=== PATIENT | male | born 1975 | race Hispanic/Latino ===

== ENCOUNTER 2023-07-01 07:36 | Emergency (ER) | payer OTHER ==
[2023-07-01 08:00] VITALS: BP 142/91; PULSE 112; RESP 14; O2SAT 99
[2023-07-01 08:25] LABS: BILIRUBIN,TOTAL 0.7 mg/dL (0.2-1.0); CREATININE 1.1 mg/dL (0.5-1.3); POTASSIUM 3.2 mmol/L (3.5-5.1)
[2023-07-01 08:39] LABS: BASOPHILS # (AUTO) 0.08 K/uL (0.00-0.20); BASOPHILS % (AUTO) 0.8 % (0.0-5.0); EOSINOPHILS # (AUTO) 0.11 K/uL (0.00-0.70); IMMATURE GRANULOCYTE ABSOLUTE 0.05 K/uL (0-1); LYMPHOCYTES # (AUTO) 2.1 K/uL (1.0-4.8); LYMPHOCYTES % (AUTO) 20.3 % (21.0-51.0); MEAN CORPUSCULAR HEMOGLOBIN 28.8 pg (27.0-33.0); MEAN CORPUSCULAR HGB CONC 34.1 g/dL (32.0-36.0); MEAN CORPUSCULAR VOLUME 84.2 fL (79-99); MONOCYTES # (AUTO) 0.7 K/uL (0.1-1.0); MONOCYTES % (AUTO) 6.5 % (3.0-13.0); NEUTROPHILS # (AUTO) 7.5 K/uL (1.8-7.7); NEUTROPHILS % (AUTO) 70.9 % (40.0-77.0); PLATELET COUNT (AUTO) 277 K/uL (130-400); RED BLOOD CELL COUNT(AUTO) 5.46 MIL/uL (4.50-6.20); RED CELL DISTRIBUTION WIDTH 13.2 % (11.0-15.5); WHITE BLOOD COUNT (AUTO) 10.5 K/uL (4.8-10.8)
[2023-07-01 09:09] LABS: ADD UA MICROSCOPIC YES; APPEARANCE,URINE CLEAR (CLEAR); BILIRUBIN,URINE NEGATIVE (NEGATIVE); COLOR,URINE YELLOW (YELLOW); GLUCOSE, URINE (UA) >=1000 mg/dL (NEGATIVE); KETONES,URINE NEGATIVE (NEGATIVE); LEUKOCYTE ESTERASE ,URINE NEGATIVE Leu/uL (NEGATIVE); NITRATE,URINE NEGATIVE (NEGATIVE); OCCULT BLOOD,URINE NEGATIVE (NEGATIVE); PH,URINE 5.5 (5.0-8.0); PROTEIN,URINE 100 mg/dL (NEGATIVE)
[2023-07-01 09:10] LABS: BACTERIA,URINE FEW /HPF (None Seen); MUCUS,URINE MANY LPF (None Seen); OTHER CASTS, URINE 1 /LPF (None Seen); WBC,URINE 0-1 /HPF (0-1)
== END 2023-07-01 09:56 | disposition home or self-care (01) ==
LOC: EDH 07:36
DX: S80.00XA Contusion of unspecified knee, initial encounter (principal); V49.88XA Car occupant (driver) (passenger) injured in other specified transport accidents, initial encounter; Y93.I9 Activity, other involving external motion; Y92.488 Other paved roadways as the place of occurrence of the external cause; Y99.8 Other external cause status
CPT/HCPCS: 36415; 70450; 71045; 72125; 72170; 73562; 80053; 81001; 82550; 83690; 84484; 85025